=== PATIENT | female | born 1960 | race African-American/Black ===

== ENCOUNTER 2017-09-07 10:49 | Emergency (ER) | payer SELFPAY ==
[2017-09-07] MEDS ORDERED: Ketorolac Tromethamine 30 MG/ML VIAL ONE (11:48)
--- NOTE | 2017-09-07 12:45 | RAD ---
LUMBAR SPINE TWO VIEWS: History: Low back pain radiating to the left hip and left thigh. FINDINGS: There are degenerative changes in the lower lumbar spine. No fracture, subluxation, or bony destructi on is identified. Vacuum disc phenomenon is noted at the L4-5 level. IMPRESSION: Lumbar spondylosis. POS: NELI
== END 2017-09-07 12:18 | disposition home or self-care (01) ==
LOC: SCSER 10:49
DX: M54.42 Lumbago with sciatica, left side (principal); I10 Essential (primary) hypertension; Z79.899 Other long term (current) drug therapy
CPT/HCPCS: 72100; 96372; J1885